=== PATIENT | female | born 1970 | race Caucasian/White ===

== ENCOUNTER 2019-04-15 11:20 | Emergency (ER) | payer OTHER, BC ==
[2019-04-15] MEDS ORDERED: IBUPROFEN 800 MG TABLET PO ONE (11:50)
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
[2019-04-15 13:15] VITALS: BP 112/60
== END 2019-04-15 13:15 | disposition home or self-care (01) ==
LOC: ER 11:20
DX: S43.409A Unspecified sprain of unspecified shoulder joint, initial encounter (principal); S29.012A Strain of muscle and tendon of back wall of thorax, initial encounter; M54.9 Dorsalgia, unspecified; M25.511 Pain in right shoulder; M25.512 Pain in left shoulder; V49.40XA Driver injured in collision with unspecified motor vehicles in traffic accident, initial encounter
CPT/HCPCS: 99283